=== PATIENT | male | born 1985 | race Caucasian/White ===

== ENCOUNTER 2017-10-06 02:26 | Emergency (ER) | payer SELFPAY ==
[2017-10-06] MEDS ORDERED: LORazepam 1 MG Tab PO ONE (03:22)
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
== END 2017-10-06 14:15 ==
LOC: JD.ED 02:26
DX: F22 Delusional disorders (principal); F17.210 Nicotine dependence, cigarettes, uncomplicated
CPT/HCPCS: 36415; 80053; 80306; 81001; 82728; 83540; 84443; 85007; 85027; 86140; 93005; 99285; A9270; G0480